=== PATIENT | female | born 1970 | race Asian ===

== ENCOUNTER 2020-04-11 15:25 | Emergency (ER) | payer MEDICAID, OTHER ==
[~2020-04-11] VITALS: Ht 160 cm; Wt 54.5 kg
[2020-04-11 15:43] VITALS: BP 110/86
[2020-04-11] MEDS ORDERED: NAPR-56 PO (15:57)
[2020-04-11] MEDS ORDERED: ALBU6.7H9 INH (15:57)
[2020-04-11] MEDS ORDERED: LIDO20SO16 PO (15:57)
[2020-04-11] MEDS ORDERED: AZIT250T2 PO (15:57)
== END 2020-04-11 16:51 | disposition home or self-care (01) ==
LOC: ER 15:25
DX: J06.9 Acute upper respiratory infection, unspecified (principal); R06.02 Shortness of breath; R05 Cough; Z20.828 Contact with and (suspected) exposure to other viral communicable diseases; Z79.2 Long term (current) use of antibiotics; Z79.899 Other long term (current) drug therapy
CPT/HCPCS: 36415; 99283